=== PATIENT | male | born 1985 | race Caucasian/White ===

== ENCOUNTER 2020-05-28 09:44 | Emergency (ER) | payer BC ==
[2020-05-28] MEDS ORDERED: Ondansetron 4 MG/2 ML SDV IVPUSH ONE (10:05)
[2020-05-28] MEDS ORDERED: Sodium Chloride 0.9% 10 ML Syringe FLUSH PRN (10:05)
[2020-05-28] MEDS ORDERED: Ketorolac 30 MG/ML SDV IVPUSH ONE (10:06)
[2020-05-28] MEDS ORDERED: HYDROmorphone 1 MG/ML Syringe IVPUSH ONE (10:06)
[2020-05-28] MEDS ORDERED: Sodium Chloride 0.9% 1,000 ML IV SCH (10:15)
--- NOTE | 2020-05-28 10:55 | EDM.PDOC ---
ED HPI GENERAL MEDICAL PROBLEM - General Chief Complaint: Flank Pain Stated Complaint: COVID + Time Seen by Provider: 05/28/20 10:01 Source of Information: Reports: Patient History Limitations: Reports: No Limitations - History of Present Illness INITIAL COMMENTS - FREE TEXT/NARRATIVE: The patient presents with right flank pain and right lower abdominal pain. This started early this morning. He does say about a week ago he had some pain but it went away. This is more severe and constant. He has a history of kidney stones a couple years ago on the left side. He has no troubles until now. He has no nausea or vomiting. He has no fever, chills or cough. He is COVID 19 positive. He was diagnosed on Wednesday. He had no symptoms though. He has no dysuria or hematuria. Onset: Gradual Duration: Hour(s): Location: Reports: Abdomen, Back Quality: Reports: Sharp Severity: Severe Improves with: Reports: None Worsens with: Reports: None Associated Symptoms: Denies: Chest Pain, Cough, Fever/Chills, Headaches, Nausea/Vomiting, Shortness of Breath Right Flank Pain Score (Numeric/FACES): 9 - Related Data Allergies Allergy/AdvReac Type Severity Reaction Status Date / Time No Known Allergies Allergy Verified 05/28/20 09:55 Home Meds: Home Meds Hydrocodone/Acetaminophen [Hydrocodone-Acetamin 5-325 mg] 1 - 2 each PO Q6HR PRN #20 tablet 05/28/20 [Rx] Tamsulosin HCl [Flomax] 0.4 mg PO DAILY #7 cap.er.24h 05/28/20 [Rx] Past Medical History - Past Health History Medical/Surgical History: Denies Medical/Surgical History Musculoskeletal History: Reports: Fracture - Infectious Disease History Infectious Disease History: Reports: Chicken Pox, Novel Coronavirus Social & Family History - Family History Family Medical History: Noncontributory - Tobacco Use Smoking Status *Q: Never Smoker Second Hand Smoke Exposure: No - Caffeine Use Caffeine Use: Reports: None - Recreational Drug Use Recreational Drug Use: No ED ROS GENERAL - Review of Systems Review Of Systems: See Below Constitutional: Reports: No Symptoms HEENT: Reports: No Symptoms Respiratory: Reports: No Symptoms Cardiovascular: Reports: No Symptoms Endocrine: Reports: No Symptoms GI/Abdominal: Reports: Abdominal Pain : Reports: Flank Pain Musculoskeletal: Reports: Back Pain ED EXAM, GI/ABD - Physical Exam Exam: See Below Exam Limited By: No Limitations General Appearance: Alert, Mild Distress Ears: Normal External Exam Nose: Normal Inspection Head: Atraumatic, Normocephalic Neck: Normal Inspection Respiratory/Chest: No Respiratory Distress, Lungs Clear, Normal Breath Sounds Cardiovascular: Regular Rate, Rhythm, No Edema, No Murmur GI/Abdominal Exam: Soft, No Organomegaly, No Mass, Tender (Mild lower abdominal pain) Back Exam: CVA Tenderness (R) Extremities: Normal Inspection Course - Vital Signs Last Recorded V/S: Last Vital Signs Temp 96.1 F L 05/28/20 09:50 Pulse 58 L 05/28/20 09:50 Resp 18 05/28/20 09:50 BP 154/95 H 05/28/20 09:50 Pulse Ox 99 05/28/20 09:50 - Orders/Labs/Meds Orders: Active Orders 24 hr Category Date Time Status Peripheral IV Care [RC] . DIRECTED Care 05/28/20 10:05 Active COMPREHENSIVE METABOLIC PN,CMP [CHEM] Stat Lab 05/28/20 10:05 Results LIPASE [CHEM] Stat Lab 05/28/20 10:05 Results UA W/MICROSCOPIC [URIN] Stat Lab 05/28/20 11:27 Results Sodium Chloride 0.9% [Normal Saline] 1,000 ml Med 05/28/20 10:15 Active IV ASDIRECTED Sodium Chloride 0.9% [Saline Flush] Med 05/28/20 10:05 Active 10 ml FLUSH ASDIRECTED PRN ED Antiemetic Medication Reflex [OM.PC] Stat Oth 05/28/20 10:05 Ordered Peripheral IV Insertion Adult [OM.PC] Stat Oth 05/28/20 10:05 Ordered Medication Orders Sodium Chloride (Normal Saline) 1,000 mls @ 125 mls/hr IV ASDIRECTED MEGAN Last Admin: 05/28/20 10:21 Dose: 125 mls/hr Documented by: GENIA Sodium Chloride (Saline Flush) 10 ml FLUSH ASDIRECTED PRN PRN Reason: Keep Vein Open Last Admin: 05/28/20 10:20 Dose: 10 ml Documented by: GENIA Labs: Laboratory Tests 05/28/20 05/28/20 05/28/20 Range/Units 10:05 10:05 11:27 WBC 9.20 H (4.23-9.07) K/mm3 RBC 5.44 (4.63-6.08) M/mm3 Hgb 16.6 (13.7-17.5) gm/dl Hct 47.6 (40.1-51.0) % MCV 87.5 (79.0-92.2) fl MCH 30.5 (25.7-32.2) pg MCHC 34.9 (32.2-35.5) g/dl RDW Std Deviation 40.2 (35.1-43.9) fL Plt Count 186 (163-337) K/mm3 MPV 11.4 (9.4-12.3) fl Neut % (Auto) 45.5 (34.0-67.9) % Lymph % (Auto) 41.7 (21.8-53.1) % Dare % (Auto) 11.0 (5.3-12.2) % Eos % (Auto) 0.9 (0.8-7.0) Baso % (Auto) 0.5 (0.1-1.2) % Neut # (Auto) 4.18 (1.78-5.38) K/mm3 Lymph # (Auto) 3.84 H (1.32-3.57) K/mm3 Dare # (Auto) 1.01 H (0.30-0.82) K/mm3 Eos # (Auto) 0.08 (0.04-0.54) K/mm3 Baso # (Auto) 0.05 (0.01-0.08) K/mm3 Sodium 136 (136-145) mEq/L Potassium 3.4 L (3.5-5.1) mEq/L Chloride 102 (98-107) mEq/L Carbon Dioxide 21 (21-32) mEq/L Anion Gap 16.4 H (5-15) BUN 20 H (7-18) mg/dL Creatinine 1.3 (0.7-1.3) mg/dL Est Cr Clr Drug Dosing 81.11 mL/min Estimated GFR (MDRD) > 60 (>60) mL/min BUN/Creatinine Ratio 15.4 (14-18) Glucose 132 H (74-106) mg/dL Total Bilirubin 1.0 (0.2-1.0) mg/dL AST 26 (15-37) U/L ALT 33 (16-63) U/L Alkaline Phosphatase 68 (46-116) U/L Total Protein 7.8 (6.4-8.2) g/dl Albumin 4.7 (3.4-5.0) g/dl Globulin 3.1 gm/dL Albumin/Globulin Ratio 1.5 (1-2) Lipase 71 L (73-393) U/L Urine Color Yellow (Yellow) Urine Appearance Clear (Clear) Urine pH 5.5 (5.0-8.0) Ur Specific [place] > or = 1.030 (1.005-1.030) Urine Protein 1+ H (Negative) Urine Glucose (UA) Negative (Negative) Urine Ketones 3+ H (Negative) Urine Occult Blood 2+ H (Negative) Urine Nitrite Negative (Negative) Urine Bilirubin 1+ H (Negative) Urine Urobilinogen 0.2 (0.2-1.0) Ur Leukocyte Esterase Negative (Negative) Meds: Medications Generic Name Dose Route Start Last Admin Trade Name Jorge PRN Reason Stop Dose Admin Sodium Chloride 1,000 mls @ 125 mls/hr 05/28/20 10:15 05/28/20 10:21 Normal Saline IV 125 mls/hr ASDIRECTED MEGAN Administration Sodium Chloride 10 ml 05/28/20 10:05 05/28/20 10:20 Saline Flush FLUSH 10 ml ASDIRECTED PRN Administration Keep Vein Open Discontinued Medications Generic Name Dose Route Start Last Admin Trade Name Jorge PRN Reason Stop Dose Admin Hydromorphone HCl 1 mg 05/28/20 10:06 05/28/20 10:12 Dilaudid IVPUSH 05/28/20 10:07 1 mg ONETIME ONE Administration Ketorolac Tromethamine 30 mg 05/28/20 10:06 05/28/20 10:18 Toradol IVPUSH 05/28/20 10:07 30 mg ONETIME ONE Administration Ondansetron HCl 4 mg 05/28/20 10:05 05/28/20 10:10 Zofran IVPUSH 05/28/20 10:06 4 mg ONETIME ONE Administration - Re-Assessments/Exams Free Text/Narrative Re-Assessment/Exam: 05/28/20 10:56 I ordered an IV NS at 125mL/hr, dilaudid 1mg IV, toradol 30mg IV, zofran 4mg IV, labs, UA, and a CT of his abdomen and pelvis. 05/28/20 11:54 His WBC was slightly elevated at 9.2. His K was a little low at 3.4. His anion gap was elevated at 16.4. His UA shows no UTI but he did have some blood. His CT shows obstructing calculus within the distal right ureter at the UVJ. This obstructing calculus measures 3.8mm. No other acute finding is seen on noncontrast CT study of the abdomen and pelvis. He feels good. I will get him on some flomax and hydrocodone for pain. He is still off of work due to COVID 19 infection. Departure - Departure Time of Disposition: 12:00 Disposition: Home, Self-Care 01 Condition: Good Clinical Impression: Kidney stone on right side, Ureteral calculi, Ureteral colic - Discharge Information *PRESCRIPTION DRUG MONITORING PROGRAM REVIEWED*: No *COPY OF PRESCRIPTION DRUG MONITORING REPORT IN PATIENT DARSHAN: No Prescriptions: Tamsulosin HCl [Flomax] 0.4 mg PO DAILY #7 cap.er.24h Hydrocodone/Acetaminophen [Hydrocodone-Acetamin 5-325 mg] 1 - 2 each PO Q6HR PRN #20 tablet PRN Reason: Pain Referrals: Anuel Baeza MD [Primary Care Provider] - Forms: ED Department Discharge Additional Instructions: Drink plenty of fluids. Take the flomax daily. Take motrin or aleve for pain. If that does not help, try the hydrocodone. Please return if you are worse. If you do not pass the stone within a week, follow up with Dr Baeza. Sepsis Event Note (ED) - Evaluation Sepsis Screening Result: No Definite Risk - Focused Exam Vital Signs: Vital Signs Temp Pulse Resp BP Pulse Ox 05/28/20 09:50 96.1 F L 58 L 18 154/95 H 99 - My Orders Last 24 Hours: My Active Orders 05/28/20 10:05 Peripheral IV Care [RC] . DIRECTED COMPREHENSIVE METABOLIC PN,CMP [CHEM] Stat LIPASE [CHEM] Stat Sodium Chloride 0.9% [Saline Flush] 10 ml FLUSH ASDIRECTED PRN ED Antiemetic Medication Reflex [OM.PC] Stat Peripheral IV Insertion Adult [OM.PC] Stat 05/28/20 10:15 Sodium Chloride 0.9% [Normal Saline] 1,000 ml IV ASDIRECTED 05/28/20 11:27 UA W/MICROSCOPIC [URIN] Stat - Assessment/Plan Last 24 Hours: My Active Orders 05/28/20 10:05 Peripheral IV Care [RC] . DIRECTED COMPREHENSIVE METABOLIC PN,CMP [CHEM] Stat LIPASE [CHEM] Stat Sodium Chloride 0.9% [Saline Flush] 10 ml FLUSH ASDIRECTED PRN ED Antiemetic Medication Reflex [OM.PC] Stat Peripheral IV Insertion Adult [OM.PC] Stat 05/28/20 10:15 Sodium Chloride 0.9% [Normal Saline] 1,000 ml IV ASDIRECTED 05/28/20 11:27 UA W/MICROSCOPIC [URIN] Stat
--- NOTE | 2020-05-28 11:33 | CT ---
CT abdomen and pelvis Technique: Multiple axial sections were obtained from above the dome of the diaphragm inferiorly through the pubic symphysis. Intravenous and oral contrast not utilized. Study has been performed as a ureteral stone protocol. Findings: Right ureter is prominent. This finding is caused by a 3.8 mm obstructing stone within the distal right ureter located at the UVJ. No other ureteral calculi are seen. No abnormal renal calculi are seen. Other findings: Visualized lung bases show nothing acute. Liver shows no discrete abnormality. Spleen shows no discrete abnormality. Adrenal glands show no nodule. Pancreas shows no discrete abnormality. Gallbladder contains no calcified gallstones. Aorta shows no aneurysm. No retroperitoneal adenopathy or mesenteric abnormalities are seen. No pelvic mass or adenopathy is seen. No free fluid or inflammatory change is appreciated. Appendix not visualized with certainty. Bone window settings were reviewed which showed no acute osseous finding. Impression: 1. Obstructing calculus within the distal right ureter at the UVJ. This obstructing calculus measures 3.8 mm. 2. No other acute finding is seen on noncontrast CT study of the abdomen and pelvis. Diagnostic code #3 This report was dictated in MDT
== END 2020-05-28 12:20 | disposition home or self-care (01) ==
LOC: JD.ED 09:44
DX: N20.2 Calculus of kidney with calculus of ureter (principal); U07.1 COVID-19
CPT/HCPCS: 36415; 74176; 80053; 81001; 83690; 85025; 96361; 96374; 96375; 99284; J1170; J1885; J2405; J7030; 99283